=== PATIENT | female | born 1985 | race Caucasian/White ===

== ENCOUNTER 2024-10-04 18:07 | Emergency (ER) | payer OTHER, BC ==
[~2024-10-04] VITALS: Ht 165.1 cm; Wt 126.6 kg
[2024-10-04] MEDS ORDERED: HYDROCODONE BIT/ACETAMINOPHEN 5/325 MG 1 TAB HOME.PACK PO PRN (22:15)
[2024-10-04 22:47] VITALS: BP 164/109
== END 2024-10-04 22:47 | disposition home or self-care (01) ==
LOC: ED 18:07
DX: S52.572A Other intraarticular fracture of lower end of left radius, initial encounter for closed fracture (principal); E78.5 Hyperlipidemia, unspecified; K21.9 Gastro-esophageal reflux disease without esophagitis; Z79.899 Other long term (current) drug therapy; W00.9XXA Unspecified fall due to ice and snow, initial encounter
CPT/HCPCS: 29125; 73110; 99283; A9270